=== PATIENT | female | born 1995 | race Caucasian/White ===

== ENCOUNTER 2017-01-15 08:09 | Emergency (ER) | payer MEDICAID ==
[~2017-01-15] VITALS: Ht 170.2 cm; Wt 78.8 kg
[2017-01-15 08:15] VITALS: Ht 170.2 cm; Wt 78.8 kg
[2017-01-15] MEDS ORDERED: ONDANSETRON (ODT) 4 MG TAB ODT STA (09:21)
[2017-01-15 09:51] LABS: URINE BLOOD (Dip) POC 2+ (NEGATIVE)
[2017-01-15] MEDS ORDERED: PANTOPRAZOLE (EC) 40 MG TAB PO ONE (11:30)
[2017-01-15] MEDS ORDERED: PANT40TA3 PO (11:49)
--- NOTE | 2017-01-15 12:23 | ERD ---
ER Documentation Chief Complaint Date/Time DATE: 01/15/17 TIME: 12:03 Chief Complaint ap with vomiting since yesterday HPI Pleasant 21-year-old female coming in today with complaint of abdominal pain, nausea and vomiting since yesterday. Patient reports sudden onset of abdominal pain 20 minutes after eating a burrito from a restaurant, nausea and vomiting started 30 minutes after ingestion of burrito. Symptoms have been ongoing with emesis 6 since yesterday last vomiting 4 AM. Patient reports low abdominal pain radiating to bilateral lower quadrants, pain is cramping, 6/10 on pain scale. Patient denies any history of dysuria or hematuria last menstrual period December 28, 2016, patient denies blood in vomit or stool. Denies diarrhea. ROS All systems reviewed and are negative except as per history of present illness. Medications Home Meds Active Scripts Pantoprazole* (Protonix*) 40 Mg Tablet.dr, 40 MG PO DAILY, #20 TAB Prov:LAZARO,MELODY 01/15/17 Allergies Allergies: Coded Allergies: No Known Allergy (Unverified , 11/03/12) PMhx/Soc History of Surgery: No Anesthesia Reaction: No Hx Neurological Disorder: No Hx Respiratory Disorders: No Hx Cardiac Disorders: No Hx Psychiatric Problems: No Hx Miscellaneous Medical Probl: Yes (IRREGULAR PERIODS) Hx Alcohol Use: No Hx Substance Use: No Hx Tobacco Use: No Physical Exam Vitals Vital Signs Date Time Temp Pulse Resp B/P Pulse Ox O2 Delivery O2 Flow Rate FiO2 01/15/17 08:15 98.2 69 18 127/69 99 Physical Exam Const: Head: Atraumatic Eyes: Normal Conjunctiva ENT: Normal External Ears, Nose and Mouth moist, tongue midline moist Neck: Resp: Clear to auscultation bilaterally Cardio: Regular rate and rhythm, no murmurs Abd: Abdomen soft, generalized tenderness all 4 quadrants. Negative Bright' s sign, negative psoas sign, pelvic tenderness, negative CVA tenderness Skin: No petechiae or rashes Back: Ext: Neur: Awake and alert Psych: Normal Mood and Affect Results 24 hrs Laboratory Tests Test 01/15/17 09:54 Bedside Urine Blood 2+ Bedside Urine Glucose (UA) Negative Bedside Urine Ketones (LAB) 2+ Bedside Urine Leukocyte Esterase (L Negative Bedside Urine Nitrite (LAB) Negative Bedside Urine Protein (LAB) 1+ Bedside Urine pH (LAB) 7.0 Current Medications Medications (Trade) Dose Ordered Sig/Chloe Route PRN Reason Start Time Stop Time Status Last Admin Dose Admin Ondansetron HCl (Zofran Odt) 4 mg ONCE STAT ODT 01/15/17 09:21 01/15/17 09:33 DC 01/15/17 09:43 Pantoprazole (Protonix Tab) 40 mg ONCE ONCE PO 01/15/17 11:30 01/15/17 11:31 DC 01/15/17 11:12 Interpretation text Urine dip negative for leukocytosis or hematuria, urinalysis grossly normal. Procedures/MDM Pleasant 21-year-old female evaluated by me in the ED 2 Patient presents with abdominal pain, nausea and vomiting after eating a burrito from a restaurant. Gastritis suspected, patient treated with 4 mg p.o. Zofran, and 40 mg p.o. Protonix. Patient reassessed after 20 minutes with improvement of symptoms. Patient had urine , negative for evidence of and urine dip negative for evidence of urinary tract infection. Appendicitis unlikely without fever. Negative Bright sign does consistent with a normal gallbladder. Gallbladder disease is not suspected at this time. Bacterial infection unlikely, urinalysis without hematuria or leukocytosis. I feel patient is stable for discharge at this time and will benefit from continue Protonix until followed up with primary care physician. I have discussed results, exam findings, this position and the treatment plan with the patient prior to discharge. Indications for emergent reevaluation. Patient instructed to return to emergency department in 8-10 hours if symptoms persist for reevaluation. I have reviewed side effects of medication, and all questions were answered at this time. Patient verbalizes understanding, agrees with plan of care, note given to return to work on next normal work day. Departure Diagnosis: Primary Impression: Gastritis Gastritis type: unspecified gastritis Chronicity: acute Gastritis bleeding : without bleeding Qualified Code: K29.00 - Acute gastritis without hemorrhage, unspecified gastritis type Condition: Good Patient Instructions: Gastritis (Adult) Referrals: [facility] YOU HAVE RECEIVED A MEDICAL SCREENING EXAM AND THE RESULTS INDICATE THAT YOU DO NOT HAVE A CONDITION THAT REQUIRES URGENT TREATMENT IN THE EMERGENCY DEPARTMENT. FURTHER EVALUATION AND TREATMENT OF YOUR CONDITION CAN WAIT UNTIL YOU ARE SEEN IN YOUR DOCTORS OFFICE WITHIN THE NEXT 1-2 DAYS. IT IS YOUR RESPONSIBILITY TO MAKE AN APPOINTMENT FOR FOLOW-UP CARE. IF YOU HAVE A PRIMARY DOCTOR --you should call your primary doctor and schedule an appointment IF YOU DO NOT HAVE A PRIMARY DOCTOR YOU CAN CALL OUR PHYSICIAN REFERRAL HOTLINE AT IF YOU CAN NOT AFFORD TO SEE A PHYSICIAN YOU CAN CHOSE FROM THE FOLLOWING [facility] CL[facility] [address] [place] [facility] [address] [facility] [address] [facility] [address] [facility] [address] [facility]. [facility]. [address] Additional Instructions: Thank you for for coming to [facility] for your care today. Please ask your nurse or provider if you have questions about your care today and do not leave until all your questions have been answered. Please return to hospital for reassessment in 8-10 hours of abdominal pain has not improved. Please use any medications given as directed and follow-up with your doctor (or the doctor you were referred to) in the next 2-3 days. If you do not have a primary care doctor you may follow up at the [facility] ( listed below). You may also use motrin and tylenol as needed for fever and/or pain unless instructed otherwise by your provider or nurse. Indications for more urgent follow-up have been discussed, but you may return to the Emergency Department at ANY time for any worrisome or worsening symptoms. If you have abdominal pain, please know that no test or exam you received is perfect and you should follow up within 8 hours for continued pain. If you had any imaging studies today, such as an X-Ray or CT Scan, these studies will be reviewed later by a radiologist. You will be called if there are important findings that were not identified today, so make sure the contact information you provided at registration is correct. If you received any narcotic pain control medicine today, such as Vicodin, Morphine or Dilaudid, your coordination and judgment may be affected for a number of hours. Please do not drive or operate heavy machinery, and you may want someone to assist you at home. If you were given a prescription for narcotic medication, be aware that it is very addictive- use sparingly and only if necessary. DAGO WILLIS Jan 15, 2017 12:21
== END 2017-01-15 12:07 | disposition home or self-care (01) ==
LOC: FTE 08:09
DX: K29.00 Acute gastritis without bleeding (principal); R10.2 Pelvic and perineal pain
CPT/HCPCS: 81003; Z7502; Z7610; 99283